=== PATIENT | male | born 1935 | race Two or more races ===

== ENCOUNTER 2018-07-13 11:33 | Inpatient (IN) | payer OTHER ==
[~2018-07-13] VITALS: Ht 170.2 cm; Wt 72.6 kg
[~2018-07-13 11:33] MED LIST: ALLEGRA ALLERG180 MG PO; BAYER CHEWABLE81 MG PO; DEXAMETHASONE0.5 MG PO; Neurontin PO; PANTOPRAZOLE SO40 MG PO; REVLIMID10 MG PO; VALACYCLOVIR500 MG PO
[2018-07-13] MEDS ORDERED: CALCIUM PO (12:16)
[2018-07-20] MEDS ORDERED: PANTOPRAZOLE SO40 MG PO (10:59)
[2018-07-20] MEDS ORDERED: AMLODIPINE BESYL5 MG PO (10:59)
[2018-07-20] MEDS ORDERED: PREDNISONE20 MG PO (11:00)
[2018-07-20] MEDS ORDERED: BUTALB-ACETAMI1 EAC2 PO (11:01)
[2018-07-20] MEDS ORDERED: ASA-EC81 MG PO (11:01)
== END 2018-07-20 11:37 | disposition home or self-care (01) | DRG 552 ==
LOC: ER 11:33 → MEDI 21:15 → MEDJ 21:15
PROC: 009U3ZX Drainage of Spinal Canal, Percutaneous Approach, Diagnostic (ICD-10-PCS; principal; 2018-07-13)
PROC: B33 Imaging, Upper Arteries, Magnetic Resonance Imaging (MRI) (ICD-10-PCS; 2018-07-16)
PROC: B030ZZZ Magnetic Resonance Imaging (MRI) of Brain (ICD-10-PCS; 2018-07-16)
PROC: BW3FZZZ Magnetic Resonance Imaging (MRI) of Neck (ICD-10-PCS; 2018-07-16)
DX: M50.122 Cervical disc disorder at C5-C6 level with radiculopathy (principal); C90.00 Multiple myeloma not having achieved remission; N39.0 Urinary tract infection, site not specified; G44.201 Tension-type headache, unspecified, intractable; I12.9 Hypertensive chronic kidney disease with stage 1 through stage 4 chronic kidney disease, or unspecified chronic kidney disease; N18.3 Chronic kidney disease, stage 3 (moderate); B95.2 Enterococcus as the cause of diseases classified elsewhere
CPT/HCPCS: 70545; 70548; 70552

== ENCOUNTER → 2022-06-30 | Emergency (ER) | payer OTHER ==
[~2022-06-30] VITALS: Ht 180.3 cm; Wt 77.1 kg
[~2022-06-30] MED LIST changes: +AMLODIPINE BESYL5 MG PO; +ASA-EC81 MG PO; +BUTALB-ACETAMI1 EAC2 PO; +CALCIUM PO; +PREDNISONE20 MG PO
== END | disposition expired ==
LOC: ER 13:46
DX: I50.9 Heart failure, unspecified (principal); Z20.822 Contact with and (suspected) exposure to COVID-19; I10 Essential (primary) hypertension; M19.90 Unspecified osteoarthritis, unspecified site; K21.9 Gastro-esophageal reflux disease without esophagitis; Z91.018 Allergy to other foods